=== PATIENT | male | born 1960 | race Caucasian/White ===

== ENCOUNTER → 2020-07-16 | Outpatient (CLI) | payer BC ==
[~2020-07-16] MED LIST: ASPIRIN ADULT L81 M1 PO; HYDROCODONE BIT1 T11 PO; IBU800 M1 PO; LEVOTHYROXINE25 MCG PO; LIPITOR80 MG PO; NAPROSYN500 MG PO; TOPROL XL25 MG PO
== END | disposition home or self-care (01) ==
LOC: CARD 00:13
PROVIDERS: ATTEND Internal Medicine
DX: I45.10 Unspecified right bundle-branch block (principal)

== ENCOUNTER → 2023-05-20 | Outpatient (CLI) | payer BC ==
[2023-05-21 05:07] LABS: HBSAG Negative (Negative); HEP B CORE AB, IGM Negative (Negative); HEPATITIS C ANTIBODY Non Reactive (Non Reactive)
== END | disposition home or self-care (01) ==
LOC: LAB 05:17 → US 08:30
PROVIDERS: ATTEND Internal Medicine
DX: K76.0 Fatty (change of) liver, not elsewhere classified (principal); R79.89 Other specified abnormal findings of blood chemistry; E78.5 Hyperlipidemia, unspecified

== ENCOUNTER → 2024-05-10 | Outpatient (CLI) | payer BC | END | disposition home or self-care (01) | LOC: MRI 02:14 | PROVIDERS: ATTEND Internal Medicine | DX: I67.82 Cerebral ischemia (principal); R41.81 Age-related cognitive decline ==

== ENCOUNTER → 2024-05-18 | Outpatient (CLI) | payer BC ==
[~2024-05-18] MED LIST changes: +IOHEXOL 350 MG/ML 100 ML VIAL IV ONE; +SODIUM CHLORIDE 0.9% 100 ML BAG IV ONE
== END ==
LOC: CT 02:47
PROVIDERS: ATTEND Internal Medicine
DX: I65.23 Occlusion and stenosis of bilateral carotid arteries (principal); R41.3 Other amnesia

== ENCOUNTER → 2025-02-10 | Outpatient (CLI) | payer BC ==
[~2025-02-10] MED LIST changes: -IOHEXOL 350 MG/ML 100 ML VIAL IV ONE; +REPATHA SU140 MG/1 M SQ; +Regadenoson 0.4 MG/5 ML SYR IV ONE; -SODIUM CHLORIDE 0.9% 100 ML BAG IV ONE; +Technetium Tc 99M Tetrofosmi 0.23 MG KIT IJ SCH
== END | disposition home or self-care (01) ==
LOC: CARD 02:30
PROVIDERS: ATTEND Internal Medicine
DX: I25.10 Atherosclerotic heart disease of native coronary artery without angina pectoris (principal); R07.9 Chest pain, unspecified